=== PATIENT | female | born 1935 | race Caucasian/White ===

== ENCOUNTER → 2018-03-04 11:49 | Outpatient (CLI) | payer MEDICARE, SELFPAY ==
--- NOTE | 2018-03-04 | DI.MG.S_ITS ---
BILATERAL DIGITAL SCREENING MAMMOGRAM 3D/2D WITH CAD POST LUMPECTOMY: 03/04/2018 CLINICAL: Routine screening. Personal history of breast cancer. Comparison is made to exams dated: 02/01/2017 mammogram - [facility], 02/20/2016 mammogram - [facility], and 07/27/2016 mammogram - [facility]. The tissue of both breasts is heterogeneously dense. This may lower the sensitivity of mammography. Current study was also evaluated with a Computer Aided Detection (CAD) system. There are benign vascular and dystrophic calcifications in both breasts. There also are postoperative findings and scarring in the upper outer quadrants of both breasts, with overlying linear scar markers noted. Surgical clips are present in the upper outer right breast. No significant masses, calcifications, or other findings are seen in either breast. IMPRESSION: BENIGN There is no mammographic evidence of malignancy. A 1 year screening mammogram is recommended. This exam was interpreted at Station ID: [id number]. NOTE: For mammograms, a report in lay terms will be sent to the patient. Approximately 15% of breast malignancies will not be visualized mammographically. In the management of a palpable breast mass, a negative mammogram must not discourage biopsy of a clinically suspicious lesion. Electronically Signed By: Benjamin Maloney M.D. ecl/:03/06/2018 21:24:03 copy to: Junseng. Phan PALMA, [facility] letter sent: Normal Exam ACR BI-RADS Category 2: Benign Finding(s) 3342F
== END ==
PROVIDERS: Family Provider Internal Medicine; PCP Internal Medicine; Visit Provider Internal Medicine
DX: Z12.31 Encounter for screening mammogram for malignant neoplasm of breast (principal); Z85.3 Personal history of malignant neoplasm of breast
CPT/HCPCS: 77063; 77067

== ENCOUNTER → 2018-03-07 14:10 | Outpatient (CLI) | payer MEDICARE, SELFPAY ==
[2018-03-07 14:45] LABS: Alanine Aminotransferase 29 IU/L (9-52); Albumin 4.2 g/dL (3.5-5.0); Albumin Globulin Ratio 1.4 (1.0-2.8); Alkaline Phosphatase 72 U/L (38-126); Aspartate Aminotransferase 30 IU/L (14-36); BUN Creatinine Ratio 22.5 (6-22); Bilirubin Total 0.5 mg/dL (0.2-1.3); Blood Urea Nitrogen 18 mg/dL (7-17); Calcium 9.5 mg/dL (8.4-10.2); Carbon Dioxide 28 mmol/L (22-32); Chloride 105 mmol/L (98-107); Estimated Glomerular Filt Rate > 60.0 mL/min (>60); Globulin 2.9 g/dL (1.7-4.1); Glucose 108 mg/dL (80-110); HEMOLYSIS < 15 (0-50); Potassium 4.2 mmol/L (3.4-5.1); Sodium 144 mmol/L (137-145); Total Protein 7.1 g/dL (6.3-8.2)
[2018-03-07 14:49] LABS: Add Manual Diff / Slide Review NO; Basophils Percent Auto 1.2 % (0-2); Hematocrit 41.3 % (36-46); Hemoglobin 13.8 g/dL (12.0-16.0); Lymphocytes Percent Auto 28.7 % (25-40); Mean Corpuscular HGB Conc 33.5 % (30-36); Mean Corpuscular Volume 89.7 fL (80-100); Monocytes Percent Auto 7.6 % (3-14); Neutrophils Absolute Auto 2700 /uL (3000-5900); Neutrophils Percent Auto 58.5 % (50-75); Platelet Count 158 X10^3/uL (150-400); Red Blood Cell Count 4.61 X10^6/uL (4.0-5.2); Red Cell Distribution Width 14.2 % (11.6-14.8); White Blood Cell Count 4.6 X10^3/uL (4.5-11.0)
== END ==
PROVIDERS: Family Provider Internal Medicine; PCP Internal Medicine; Visit Provider Internal Medicine Hematology & Oncology
DX: C50.911 Malignant neoplasm of unspecified site of right female breast (principal)
CPT/HCPCS: 36415; 80053; 85025

== ENCOUNTER 2018-03-11 11:02 | Oncology outpatient (ONC) | payer MEDICARE, SELFPAY ==
--- NOTE | 2018-03-11 11:20 | ONC.PN ---
PN -Subjective Interval history: INTERIM EVENTS She has been doing well without any new complaints patient underwent mammogram couple days ago on March 04, 2018. And the mammogram showed no evidence of abnormalities and 1 year follow-up was recommended. ONCOLOGICAL HISTORY 1) right-sided invasive breast cancer. Stage I, (pT1, Nmic, M0). Diagnosis/surgery: 01/17/2015. Core needle biopsy at the 10 o'clock position 5 cm from the nipple. Pathology confirming an invasive ductal carcinoma, [place] histological grade 1-2. ER and PA were positive with an Abel score of 8 of 8 and 5 out of 8 respectively. Ki-67 equal to 5-10%. HER-2 was 2+ on IHC but negative on FISH with a ratio of 1.07 and a copy number 1.98. 04/18/2015. Right partial mastectomy with sentinel node procedure at [facility]. Her primary measuring 19 mm in greatest diameter. [place] histological grade was 2. Ki-67 equal to 10%. 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 Margins were otherwise clear with no tumor on ink on the invasive compounded. Two sentinel lymph nodes were identified 1 showing micrometastasis measuring 1 mm no extracapsular extension was seen. Prognosis: 03/11/2017. [email or web address] online tool: 5 and 10 year survival at 82% and 57% respectively. Absolute benefit of adjuvant hormone therapy at 1% and 3% respectively. Adjuvant treatment: Patient completed radiation therapy at [facility]. August 2014-September 2015. Anastrozole September 2015-October 2016. Tamoxifen. Patient discontinued thereafter was not interested in any further adjuvant therapies. Surveillance: 02/01/2017. Bilateral diagnostic mammogram. Breast tissue is heterogeneously dense. Stable architectural distortion with spiculated margin and linear punctate calcification right breast 11:00 middle depth. Surgical clips associated with architectural distortion. No other significant masses calcifications seen in either breast. - Additional ROS All systems PM: reviewed and no additional remarkable complaints except as stated Home Medications and Allergies Home Medications Medication Instructions Recorded Confirmed Type MULTIVITAMIN (#MULTIPLE VITAMINS) 1 cap PO Q DAY #0 10/12/11 History acetaminophen 325 mg PO PRN #0 05/19/16 History calcium citrate-vitamin D3 1 PO Q DAY #0 05/19/16 History [Citracal Regular] glucosamine sulfate-msm 1 PO Q DAY #0 05/19/16 History vitamin B complex [B 1 tab PO QDAY #0 05/19/16 History Complex-Vitamin B12] metronidazole 1 fran TOPICAL #0 12/07/16 History levothyroxine 100 mcg PO QAM #90 tab 04/07/17 Rx albuterol sulfate [Proventil HFA] 1 - 2 puff INH SEE INSTRUCTIONS 06/23/17 Rx #8.5 gm beclomethasone dipropionate [Qvar] 1 puff INH Q OTHER DAY 03/11/18 History mupirocin 1 applic TOPICAL BID 03/11/18 03/11/18 History peg 400-propylene glycol [Systane 03/11/18 History (propylene glycol)] potassium 198 mg PO DAILY 03/11/18 03/11/18 History Allergies Allergy/AdvReac Type Severity Reaction Status Date / Time oxycodone [OXYCODONE] Allergy Mild UNKNOWN Unverified 10/06/17 11:54 Sulfa (Sulfonamide Allergy Mild NAUSEA Unverified 10/06/17 11:54 Antibiotics) [SULFA (SULFONAMIDE ANTIBIOTICS)] sulfamethizole Allergy Mild UNKNOWN Unverified 10/06/17 11:54 [SULFAMETHIZOLE] trimethoprim [TRIMETHOPRIM] Allergy Mild UNKNOWN Unverified 10/06/17 11:54 Exam Vital signs: Temperature 96.7?, heart rate 71, respiratory rate 18, blood pressure 134/82, saturation 97% room air, weight 171.9 lb. - Constitutional positive no acute distress, positive thin, positive cooperative - Routine HEENT Exam Head: Present: normocephalic, atraumatic Eye: Present: EOMI, PERRL, normal accommodation. Absent: conjunctival icterus - Routine Neck Exam Present: supple, normal carotid upstroke. Absent: lymphadenopathy, thyromegaly - Routine Respiratory Exam Present: Clear to auscultation bilaterally. Absent: wheezes - Routine Cardiovascular Exam Present: RRR, S1, S2. Absent: murmur, gallop, rubs - Routine Abdominal Exam Present: soft, normoactive bowel sounds Palpation/Percussion: Absent: hepatomegaly, splenomegaly - Routine Extremities Exam Absent: edema - Routine Neurological Exam Present: alert, oriented X3, CN II-XII intact, normal speech. Absent: sensory deficit, motor deficit - Routine Psychiatric Exam Present: normal affect, normal thought process, cooperative, good insight, good judgment Results - Labs Reviewed Assessment and Plan (1) Cancer of right breast, stage 1, estrogen receptor positive Current visit: Yes Status: Chronic Clinically and mammographically, I do not think there is any evidence to suggest disease recurrence or metastasis. Of note, patient has only been able to tolerate 2 years and 2 months of adjuvant hormone therapy and had to discontinue in October of 2016 due to intolerable fatigue and left upper quadrant pain. I talked with the patient that I am going to see her in about 6 months. I emphasized that if she notice any new changes, new problems or anything, she needs to call us.
[2018-03-11 11:22] VITALS: BP 134/82; PULSE 71; RESP 18; TEMP 35.9; O2SAT 97
== END 2018-03-12 12:00 ==
LOC: ONC 11:03
PROVIDERS: Family Provider Internal Medicine; PCP Internal Medicine; Visit Provider Internal Medicine Hematology & Oncology
DX: Z08 Encounter for follow-up examination after completed treatment for malignant neoplasm (principal); Z85.3 Personal history of malignant neoplasm of breast
CPT/HCPCS: 99213

== ENCOUNTER → 2018-04-21 11:05 | Outpatient (CLI) | payer MEDICARE, SELFPAY ==
[2018-04-21 11:40] LABS: Add Manual Diff / Slide Review NO; Eosinophils Percent Auto 3.7 % (2-4); Hematocrit 42.1 % (36-46); Lymphocytes Percent Auto 29.4 % (25-40); Mean Corpuscular HGB Conc 33.3 % (30-36); Mean Corpuscular Hemoglobin 30.2 PG (26-34); Mean Corpuscular Volume 90.5 fL (80-100); Monocytes Percent Auto 7.4 % (3-14); Neutrophils Absolute Auto 2300 /uL (3000-5900); Neutrophils Percent Auto 58.5 % (50-75); Platelet Count 168 X10^3/uL (150-400); Red Blood Cell Count 4.65 X10^6/uL (4.0-5.2); Red Cell Distribution Width 14.3 % (11.6-14.8)
[2018-04-21 11:46] LABS: Alanine Aminotransferase 29 IU/L (9-52); Albumin 4.3 g/dL (3.5-5.0); Albumin Globulin Ratio 1.5 (1.0-2.8); Alkaline Phosphatase 67 U/L (38-126); Aspartate Aminotransferase 30 IU/L (14-36); BUN Creatinine Ratio 22.5 (6-22); Bilirubin Total 0.4 mg/dL (0.2-1.3); Blood Urea Nitrogen 18 mg/dL (7-17); Calcium 9.5 mg/dL (8.4-10.2); Carbon Dioxide 29 mmol/L (22-32); Chloride 105 mmol/L (98-107); Estimated Glomerular Filt Rate > 60.0 mL/min (>60); Globulin 2.8 g/dL (1.7-4.1); Glucose 95 mg/dL (80-110); HEMOLYSIS < 15 (0-50); Potassium 3.9 mmol/L (3.4-5.1); Sodium 142 mmol/L (137-145); Total Protein 7.1 g/dL (6.3-8.2)
[2018-04-21 13:12] LABS: Free T4, Direct Thyroxine 1.27 ng/dL (0.78-2.19)
[2018-04-21 13:26] LABS: Thyroid Stimulating Hormone 2.46 uIU/mL (0.47-4.68)
== END ==
PROVIDERS: Family Provider Internal Medicine; PCP Internal Medicine; Visit Provider Internal Medicine
DX: E03.9 Hypothyroidism, unspecified (principal); E11.9 Type 2 diabetes mellitus without complications; J45.40 Moderate persistent asthma, uncomplicated; C50.911 Malignant neoplasm of unspecified site of right female breast; Z17.0 Estrogen receptor positive status [ER+]
CPT/HCPCS: 36415; 80053; 83036; 84439; 84443; 85025

== ENCOUNTER 2019-01-05 07:41 | Day surgery (SDC) | payer MEDICARE, SELFPAY ==
--- NOTE | 2019-01-05 | PATH_ITS ---
[facility] Accession Number: [id number] . 01 Material submitted: . PART A: body - POLYP AT 30 PART B: hemorrhoids - TISSUE FROM HEMORRHOID . 02 Diagnosis: A. Biopsy, Colon Polyp at 30 cm: Tubular adenoma involving multiple biopsy fragments. . B. Specimen Designated Tissue From Hemorrhoid: Fragments of rectal mucosa with nonspecific hyperplastic changes, negative for signicant atypia. No squamous epithelium identified. MRV/01/09/2019 . 02 Electronically signed: . Gume Estrada MD, Pathologist NPI- [id number] . 01 Gross description: . Part A: POLYP AT 30: Received in formalin are multiple fragment(s) of [place], soft tissue measuring 1.4 x 0.7 x 0.2 cm in aggregate submitted entirely in 1 cassette(s) Part B: TISSUE FROM HEMORRHOID: Received in formalin are multiple fragment(s) of [place], soft tissue measuring 0.6 x 0.4 x 0.2 cm in aggregate submitted entirely in 1 cassette(s) /CKI /CKI . 02 Pathologist provided ICD-10: D12.5 . 02 CPT . 366370, [id number] Performed at: 01 [facility] [address], [place], [place] [id number] MD Km Agarwal MD Phone: [phone] Performed at: 02 [facility] [address] [place], [place] [id number] MD Gwen Powell MD Phone: [phone]
[2019-01-05 08:13] VITALS: BP 151/74; PULSE 71; RESP 15; TEMP 36.4; O2SAT 95; BMI 26.5
[2019-01-05] MEDS: LACTATED RINGERS 1,000 ML 200 ML IV (08:31)
--- NOTE | 2019-01-05 09:13 | PM.PREOP ---
Pre-operative Note Interval Note History & Physical reviewed/Exam performed by Physician: Yes Changes to H&P: No H&P completed within 30 days and has changed as indicated here:: See H and P from 12/14/2018. Glucose 89
[2019-01-05 10:27] VITALS: BP 114/50; PULSE 50; RESP 12; TEMP 36.2; O2SAT 97
[2019-01-05 10:30] VITALS: BP 117/55; PULSE 47; RESP 12; TEMP 36.3; O2SAT 97
[2019-01-05 10:35] VITALS: BP 135/50; PULSE 57; RESP 18; TEMP 36.4; O2SAT 96
[2019-01-05 10:41] VITALS: BP 126/61; PULSE 55; RESP 16; TEMP 36.3; O2SAT 94
[2019-01-05 10:58] VITALS: BP 158/64; PULSE 58; RESP 18; TEMP 36.7; O2SAT 98
--- NOTE | 2019-01-05 11:15 | PM.OP.ENDO ---
Operative Date/Time/Diagnoses Date of procedure: 01/05/19 Time of procedure: 10:15 Pre-op diagnosis: Rectal bleeding Post-op diagnosis: same (Ulcerative process at the anus including a hemorrhoid. Small polyp at 30 cm. Sigmoid diverticulosis.) Procedure & Clinicians Study performed: Colonoscopy with hot snare polypectomy and 2 column hemorrhoid banding Same procedure as scheduled: Yes Indications: Rectal bleeding Surgeon: Ramez Varma Procedure Notes SCOAP/Timeout: Performed Procedure in detail: Because of the patient's anxiety in severe discomfort with her last colonoscopy I asked that anesthesia be involved for deep sedation. Patient did not feel she could tolerate simple moderate sedation as she has had before. The patient was placed in the left lateral decubitus position . Digital exam was remarkable for visible swollen external hemorrhoid. The scope was inserted and advanced through the rectum into the sigmoid, descending, transverse, and ascending colon. A polyp was removed on the way in at 30 cm with a hot snare. It was under a cm in size.. The cecum was reached identified by the ileocecal valve. The scope was gradually brought out. No other Polyps were found. The scope ultimately was retroflexed in the rectum. The appearance was remarkable for an ulcerated hemorrhoid and 1 additional hemorrhoid of fair size. I chose to biopsy the surface of the ulcerative hemorrhoid just in case there is neoplastic process on its surface. The scope was removed and the patient tolerated the procedure well. An anoscope was inserted and 2 columns of hemorrhoids including the ulcer day of 1 had rubber bands placed on them. The results appeared to be adequate. The scope anoscope was removed. Scope withdrawal time: 10 minutes Findings: diverticulosis (Sigmoid) and polyp (At 30 cm) Specimen(s): other (Polyp and rectal biopsy) Complications: none Recommendations: Will call with biopsy results Plan for aftercare: Follow-up in the office in about 10-14 days Disposition: PACU
--- NOTE | 2019-01-05 11:32 | SUR.PHASEII ---
Dr Varma discharged pt. pt dressed with assist of . Pt left when ready and left in stable condition.
--- NOTE | 2019-01-05 11:40 | SUR.PHASEII ---
Late entry: Pt with bruise to L under side of forearm from ekg removal. Skin intact, pt admitted to having thin fragile skin that bruised easily. both forearms scattered with tiny bruises in various stages of healing
== END 2019-01-05 11:32 | disposition home or self-care (01) ==
PROVIDERS: PCP Internal Medicine; Visit Provider Specialist
PROC: 0DJD8ZZ Inspection of Lower Intestinal Tract, Via Natural or Artificial Opening Endoscopic (ICD-10-PCS; CPT 45378; principal; 2019-01-05 08:45)
DX: D12.5 Benign neoplasm of sigmoid colon (principal); K57.30 Diverticulosis of large intestine without perforation or abscess without bleeding; K64.4 Residual hemorrhoidal skin tags; E11.9 Type 2 diabetes mellitus without complications; E03.9 Hypothyroidism, unspecified
CPT/HCPCS: 45385; 46221; 88305; J2704; J3010

== ENCOUNTER → 2019-03-06 12:51 | Outpatient (CLI) | payer MEDICARE, SELFPAY ==
--- NOTE | 2019-03-06 12:54 | DI.MG.S_ITS ---
BILATERAL DIGITAL SCREENING MAMMOGRAM 3D/2D WITH CAD POST LUMPECTOMY: 03/06/2019 CLINICAL: Routine screening. Personal history of breast cancer. Family history of breast cancer. Comparison is made to exams dated: 03/04/2018 mammogram, 02/01/2017 mammogram, 07/27/2016 mammogram - [facility], 02/20/2016 mammogram - [facility], and 01/08/2015 mammogram - [facility]. The tissue of both breasts is heterogeneously dense. This may lower the sensitivity of mammography. Current study was also evaluated with a Computer Aided Detection (CAD) system. There are benign vascular calcifications in both breasts. There also are benign post operative findings in both breasts. No significant masses, calcifications, or other findings are seen in either breast. There has been no significant interval change. IMPRESSION: There is no mammographic evidence of malignancy. A 1 year screening mammogram is recommended. This exam was interpreted at Station ID: [id number]. NOTE: For mammograms, a report in lay terms will be sent to the patient. Approximately 15% of breast malignancies will not be visualized mammographically. In the management of a palpable breast mass, a negative mammogram must not discourage biopsy of a clinically suspicious lesion. Electronically Signed By: Martin keith/hugo:03/06/2019 16:58:32 copy to: Praveen Howard letter sent: Normal Exam ACR BI-RADS Category 2: Benign Finding(s) 3342F
[2019-03-06 13:43] LABS: Add Manual Diff / Slide Review NO; Basophils Absolute Auto 100 /uL (0-100); Basophils Percent Auto 1.2 % (0-2); Eosinophils Absolute Auto 100 /uL (0-450); Eosinophils Percent Auto 1.6 % (2-4); Hematocrit 41.7 % (36-46); Hemoglobin 13.8 g/dL (12.0-16.0); Lymphocytes Absolute Auto 1100 /uL (1100-4500); Lymphocytes Percent Auto 24.9 % (25-40); Mean Corpuscular HGB Conc 33.1 % (30-36); Mean Corpuscular Hemoglobin 30.1 PG (26-34); Monocytes Absolute Auto 300 /uL (0-900); Monocytes Percent Auto 5.6 % (3-14); Neutrophils Absolute Auto 3000 /uL (1500-7000); Neutrophils Percent Auto 66.7 % (50-75); Platelet Count 167 X10^3/uL (150-400); Red Blood Cell Count 4.58 X10^6/uL (4.0-5.2); Red Cell Distribution Width 14.3 % (11.6-14.8); White Blood Cell Count 4.6 X10^3/uL (4.5-11.0)
[2019-03-06 14:11] LABS: Alanine Aminotransferase 27 IU/L (9-52); Albumin 4.2 g/dL (3.5-5.0); Albumin Globulin Ratio 1.5 (1.0-2.8); Alkaline Phosphatase 68 U/L (38-126); Aspartate Aminotransferase 34 IU/L (14-36); Bilirubin Total 0.6 mg/dL (0.2-1.3); Blood Urea Nitrogen 16 mg/dL (7-17); Calcium 9.5 mg/dL (8.4-10.2); Carbon Dioxide 30 mmol/L (22-32); Chloride 103 mmol/L (98-107); Estimated Glomerular Filt Rate > 60.0 mL/min (>60); Globulin 2.8 g/dL (1.7-4.1); Glucose 91 mg/dL (80-110); HEMOLYSIS < 15 (0-50); Potassium 3.8 mmol/L (3.4-5.1); Sodium 141 mmol/L (137-145)
== END ==
PROVIDERS: Family Provider Internal Medicine; PCP Internal Medicine; Visit Provider Internal Medicine Hematology & Oncology
DX: Z12.31 Encounter for screening mammogram for malignant neoplasm of breast (principal); Z85.3 Personal history of malignant neoplasm of breast; Z80.3 Family history of malignant neoplasm of breast; M85.831 Other specified disorders of bone density and structure, right forearm; Z78.0 Asymptomatic menopausal state; E07.9 Disorder of thyroid, unspecified
CPT/HCPCS: 36415; 77063; 77067; 77080; 80053; 85025

== ENCOUNTER → 2019-06-08 14:20 | Outpatient (CLI) | payer MEDICARE, SELFPAY ==
[2019-06-08 15:38] LABS: Alanine Aminotransferase 21 IU/L (<35); Albumin 4.1 g/dL (3.5-5.0); Albumin Globulin Ratio 1.6 (1.0-2.8); Alkaline Phosphatase 74 U/L (38-126); Aspartate Aminotransferase 33 IU/L (14-36); BUN Creatinine Ratio 22.5 (6-22); Bilirubin Total 0.4 mg/dL (0.2-1.3); Blood Urea Nitrogen 18 mg/dL (7-17); Calcium 9.7 mg/dL (8.4-10.2); Carbon Dioxide 31 mmol/L (22-32); Chloride 104 mmol/L (98-107); Estimated Glomerular Filt Rate > 60.0 mL/min (>60); Globulin 2.5 g/dL (1.7-4.1); Glucose 78 mg/dL (80-110); HEMOLYSIS 15 (0-50); Potassium 4.3 mmol/L (3.4-5.1); Sodium 142 mmol/L (137-145); Total Protein 6.6 g/dL (6.3-8.2)
[2019-06-08 15:54] LABS: Free T4, Direct Thyroxine 1.21 ng/dL (0.78-2.19)
[2019-06-08 16:06] LABS: Hemoglobin A1C% w Est Avg Glu 5.5 % (4.0-6.0)
== END ==
PROVIDERS: PCP Internal Medicine; Visit Provider Internal Medicine
DX: C50.911 Malignant neoplasm of unspecified site of right female breast (principal); E03.9 Hypothyroidism, unspecified; E11.9 Type 2 diabetes mellitus without complications; Z17.0 Estrogen receptor positive status [ER+]
CPT/HCPCS: 36415; 80053; 83036; 84439; 84443

== ENCOUNTER → 2019-12-08 07:54 | Outpatient (CLI) | payer MEDICARE, SELFPAY ==
[2019-12-08 08:23] LABS: Hemoglobin A1C% w Est Avg Glu 5.9 % (4.0-6.0)
[2019-12-08 08:32] LABS: Alanine Aminotransferase 20 IU/L (<35); Albumin 4.3 g/dL (3.5-5.0); Albumin Globulin Ratio 1.4 (1.0-2.8); Alkaline Phosphatase 72 U/L (38-126); Aspartate Aminotransferase 32 IU/L (14-36); BUN Creatinine Ratio 21.7 (6-22); Bilirubin Total 0.6 mg/dL (0.2-1.3); Blood Urea Nitrogen 18 mg/dL (7-17); Calcium 9.9 mg/dL (8.4-10.2); Carbon Dioxide 29 mmol/L (22-32); Chloride 104 mmol/L (98-107); Cholesterol 212 mg/dL (140-199); Estimated Glomerular Filt Rate > 60.0 mL/min (>60); Glucose 100 mg/dL (80-110); HDL Cholesterol 62 mg/dL (40-60); HEMOLYSIS < 15 (0-50); LDL Cholesterol Calculated 132 mg/dL (<100); Potassium 4.1 mmol/L (3.4-5.1); Sodium 139 mmol/L (137-145); Total Protein 7.3 g/dL (6.3-8.2); Triglycerides 91 mg/dL (35-150)
[2019-12-08 09:22] LABS: Free T4, Direct Thyroxine 1.17 ng/dL (0.78-2.19)
== END ==
PROVIDERS: PCP Internal Medicine; Referring Provider Internal Medicine; Visit Provider Internal Medicine
DX: E11.9 Type 2 diabetes mellitus without complications (principal); C50.911 Malignant neoplasm of unspecified site of right female breast; E03.9 Hypothyroidism, unspecified; E04.1 Nontoxic single thyroid nodule; Z17.0 Estrogen receptor positive status [ER+]
CPT/HCPCS: 36415; 80053; 80061; 83036; 84439; 84443

== ENCOUNTER → 2020-03-07 09:22 | Outpatient (CLI) | payer MEDICARE, SELFPAY ==
--- NOTE | 2020-03-07 09:34 | DI.MG.S_ITS ---
Patient Name: KYLIE STONE date: 1935 Sex: F Attending Physician: Phan Indications: Date: 03/07/2020 09:30 At the request of: BRIEN NICOLE Procedure: MM screening mammo BI BILATERAL DIGITAL SCREENING MAMMOGRAM 3D/2D WITH CAD: 03/07/2020 CLINICAL: Routine screening. Personal history of bilateral breast cancer. Comparison is made to exams dated: 03/06/2019 mammogram, 03/04/2018 mammogram, and 02/01/2017 mammogram - [facility]. The tissue of both breasts is heterogeneously dense. This may lower the sensitivity of mammography. Current study was also evaluated with a Computer Aided Detection (CAD) system. There are benign calcifications in both breasts. There also are benign vascular calcifications in both breasts. Additionally, there are benign post operative findings in both breasts. No significant masses, calcifications, or other findings are seen in either breast. There has been no significant interval change. IMPRESSION: BENIGN There is no mammographic evidence of malignancy. A 1 year screening mammogram is recommended. This exam was interpreted at Station ID: [id number]. NOTE: For mammograms, a report in lay terms will be sent to the patient. Approximately 15% of breast malignancies will not be visualized mammographically. In the management of a palpable breast mass, a negative mammogram must not discourage biopsy of a clinically suspicious lesion. Electronically Signed By: Nieves viera/hugo:03/07/2020 11:02:14 copy to: Praveen Howard letter sent: Normal Exam ACR BI-RADS Category 2: Benign Finding(s) 3342F Continued Report - Page 2 of 2 Patient Name: KYLIE STONE date: 1935 Sex: F Attending Physician: Phan Indications: Date: 03/07/2020 09:30 At the request of: BRIEN NICOLE Procedure: MM screening mammo BI
== END ==
PROVIDERS: PCP Internal Medicine; Referring Provider Internal Medicine Hematology & Oncology; Visit Provider Internal Medicine Hematology & Oncology
DX: Z12.31 Encounter for screening mammogram for malignant neoplasm of breast (principal); Z85.3 Personal history of malignant neoplasm of breast
CPT/HCPCS: 77063; 77067

== ENCOUNTER → 2021-08-05 10:49 | Outpatient (CLI) | payer MEDICARE, SELFPAY ==
--- NOTE | 2021-08-05 10:50 | DI.RAD.S_ITS ---
PROCEDURE: XR CHEST 2V INDICATIONS: left chest pain TECHNIQUE: 2 views of the chest were acquired. COMPARISON: [facility], , CHEST 2 VIEW, 01/03/2015, 10:47. FINDINGS: Surgical changes and devices: Surgical clips are seen in left axilla.. Lungs and pleura: Chronic emphysematous changes are seen. No focal infiltrate. No pleural effusions or pneumothorax. Mediastinum: Mediastinal contours are normal. Heart size is enlarged. Bones and chest wall: No suspicious bony abnormalities. Soft tissues appear unremarkable. IMPRESSION: COPD. No acute cardiopulmonary pathology. Dictated by: Buddy Aquino M.D. on 08/05/2021 at 13:20 Approved by: Buddy Aquino M.D. on 08/05/2021 at 13:20
== END ==
PROVIDERS: PCP Internal Medicine; Referring Provider Internal Medicine; Visit Provider Internal Medicine
DX: C50.911 Malignant neoplasm of unspecified site of right female breast (principal); E03.9 Hypothyroidism, unspecified; E11.9 Type 2 diabetes mellitus without complications; J45.40 Moderate persistent asthma, uncomplicated; R07.9 Chest pain, unspecified; Z17.0 Estrogen receptor positive status [ER+]
CPT/HCPCS: 71046

== ENCOUNTER → 2021-08-06 11:20 | Outpatient (CLI) | payer MEDICARE, SELFPAY ==
[2021-08-06 12:18] LABS: Add Manual Diff / Slide Review NO; Basophils Absolute Auto 0 /uL (0-100); Basophils Percent Auto 0.7 % (0-2); Eosinophils Absolute Auto 100 /uL (0-450); Eosinophils Percent Auto 1.6 % (2-4); Hematocrit 40.4 % (36-46); Hemoglobin 13.3 g/dL (12.0-16.0); Lymphocytes Absolute Auto 1000 /uL (1100-4500); Lymphocytes Percent Auto 24.6 % (25-40); Mean Corpuscular HGB Conc 32.9 % (30-36); Mean Corpuscular Hemoglobin 29.3 PG (26-34); Mean Corpuscular Volume 88.9 fL (80-100); Monocytes Absolute Auto 300 /uL (0-900); Monocytes Percent Auto 7.7 % (3-14); Neutrophils Absolute Auto 2600 /uL (1500-7000); Neutrophils Percent Auto 65.4 % (50-75); Platelet Count 161 X10^3/uL (150-400); Red Blood Cell Count 4.54 X10^6/uL (4.0-5.2); Red Cell Distribution Width 14.3 % (11.6-14.8); White Blood Cell Count 3.9 X10^3/uL (4.5-11.0)
[2021-08-06 12:26] LABS: Alanine Aminotransferase 17 IU/L (<35); Albumin Globulin Ratio 1.6 (1.0-2.8); Alkaline Phosphatase 73 U/L (38-126); Aspartate Aminotransferase 27 IU/L (14-36); BUN Creatinine Ratio 21.1 (6-22); Bilirubin Total 0.6 mg/dL (0.2-1.3); Blood Urea Nitrogen 16 mg/dL (7-17); Calcium 9.5 mg/dL (8.4-10.2); Carbon Dioxide 33 mmol/L (22-32); Chloride 103 mmol/L (98-107); Estimated Glomerular Filt Rate > 60.0 mL/min (>60); Globulin 2.5 g/dL (1.7-4.1); Glucose 91 mg/dL (80-110); HEMOLYSIS < 15 (0-50); Sodium 140 mmol/L (137-145); Total Protein 6.5 g/dL (6.3-8.2)
[2021-08-06 13:09] LABS: Hemoglobin A1C% w Est Avg Glu 5.6 % (4.0-6.0)
[2021-08-06 13:19] LABS: Free T4, Direct Thyroxine 1.73 ng/dL (0.78-2.19)
== END ==
PROVIDERS: PCP Internal Medicine; Referring Provider Internal Medicine; Visit Provider Internal Medicine
DX: E11.9 Type 2 diabetes mellitus without complications (principal); C50.911 Malignant neoplasm of unspecified site of right female breast; E03.9 Hypothyroidism, unspecified; J45.40 Moderate persistent asthma, uncomplicated; R07.9 Chest pain, unspecified; Z17.0 Estrogen receptor positive status [ER+]
CPT/HCPCS: 36415; 80053; 83036; 84439; 84443; 85025

== ENCOUNTER → 2021-08-22 10:04 | Outpatient (CLI) | payer MEDICARE, SELFPAY ==
--- NOTE | 2021-08-22 10:17 | DI.CT.S_ITS ---
PROCEDURE: CT CHEST W CON INDICATIONS: Chest pain TECHNIQUE: After the administration of intravenous contrast, 5 mm thick sections acquired from the pulmonary apices to the posterior costophrenic angles. 1 mm axial lung, 5 mm thick coronal and sagittal reformats and 7 mm axial MIP were acquired. For radiation dose reduction, the following was used: automated exposure control, adjustment of mA and/or kV according to patient size. COMPARISON: [facility], CT, THORAX WITH CONTRAST, 02/27/2015, 9:04. [facility], CT, THORAX WITHOUT CONTRAST, 05/30/2008, 9:18. [facility], CT, THORAX WITH CONTRAST, 02/15/2008, 8:42. CT, THORAX WITHOUT CONTRAST, 07/23/2016, 12:32. FINDINGS: Image quality: Excellent. Lungs and pleura: There is a 1.6 cm partially calcified nodule in the right upper lobe, slightly enlarged since 07/23/2016 (previously 1.3 cm). A 0.3 x 0.7 cm nodule is seen along the minor fissure, unchanged in size. No acute air space opacities. No pleural effusions or pneumothorax. Central and peripheral airways are patent and normal in caliber. Mediastinum: Heart size is normal. No pericardial effusion. No mediastinal or hilar adenopathy by size criteria. Thoracic aorta and central pulmonary arteries are normal in size. Esophagus is normal in caliber. No hiatal hernia. Bones and chest wall: Surgical clips in the left breast and the left axilla. No suspicious bony lesions. No vertebral body compression fractures. No axillary or supraclavicular adenopathy by size criteria. Thyroid gland is normal. Abdomen: There is a 0.7 cm low-density nodule in spleen, not seen on previous exams. There are gallstones or gallbladder sludge. Visualized upper abdominal solid organs appear normal. Upper abdominal bowel loops are normal in caliber. IMPRESSION: 1. Slight enlargement right upper lobe partially calcified nodule measuring 1.6 mm (previously 1.3 cm on 07/23/2016). 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 2. Stable noncalcified nodule in the right minor fissure. 3. A 0.7 cm indeterminate low-density nodule in the spleen, not seen on the prior exams. It is probably a cyst or hemangioma. Ultrasound is suggested for follow-up. 4. Gallstones versus sludge in gallbladder. Dictated by: Luz Adrian M.D. on 08/22/2021 at 12:10 Approved by: Luz Adrian M.D. on 08/22/2021 at 13:56
== END ==
PROVIDERS: PCP Internal Medicine; Referring Provider Internal Medicine; Visit Provider Internal Medicine
DX: C50.911 Malignant neoplasm of unspecified site of right female breast (principal); R07.9 Chest pain, unspecified; G89.29 Other chronic pain; R91.8 Other nonspecific abnormal finding of lung field; D73.9 Disease of spleen, unspecified; Z17.0 Estrogen receptor positive status [ER+]
CPT/HCPCS: 71260

== ENCOUNTER → 2021-08-25 10:06 | Outpatient (CLI) | payer MEDICARE, SELFPAY ==
[2021-08-26 11:20] LABS: Varicella IgG Antibody 2653 index (Immune >165)
== END ==
PROVIDERS: PCP Internal Medicine; Referring Provider Internal Medicine; Visit Provider Internal Medicine
DX: Z01.84 Encounter for antibody response examination (principal)
CPT/HCPCS: 36415; 86787

== ENCOUNTER → 2023-02-02 08:43 | Outpatient (CLI) | payer MEDICARE, SELFPAY ==
[2023-02-02 10:16] LABS: Alanine Aminotransferase 19 IU/L (<35); Albumin 3.7 g/dL (3.5-5.0); Albumin Globulin Ratio 1.4 (1.0-2.8); Alkaline Phosphatase 74 U/L (38-126); Aspartate Aminotransferase 26 IU/L (14-36); BUN Creatinine Ratio 30.6 (6-22); Bilirubin Total 0.5 mg/dL (0.2-1.3); Blood Urea Nitrogen 22 mg/dL (7-17); Calcium 8.8 mg/dL (8.4-10.2); Carbon Dioxide 32 mmol/L (22-32); Chloride 104 mmol/L (98-107); Cholesterol 201 mg/dL (140-199); Estimated Glomerular Filt Rate > 60 mL/min (>60); Globulin 2.6 g/dL (1.7-4.1); Glucose 90 mg/dL (80-110); HDL Cholesterol 69 mg/dL (40-60); HEMOLYSIS < 15 (0-50); LDL Cholesterol Calculated 114 mg/dL (<100); Sodium 138 mmol/L (137-145); Total Protein 6.3 g/dL (6.3-8.2); Triglycerides 91 mg/dL (35-150)
[2023-02-02 10:30] LABS: Free T4, Direct Thyroxine 1.46 ng/dL (0.78-2.19)
[2023-02-02 10:44] LABS: Thyroid Stimulating Hormone 0.283 uIU/mL (0.47-4.68)
[2023-02-02 12:11] LABS: Creatinine Urine Random 22.3 mg/dL
[2023-02-02 12:26] LABS: Microalbumin Urine Random < 0.6 mg/dL (0-1.6)
[2023-02-03 03:36] LABS: Labcorp Hemoglobin (Hb) A1c 5.8 % (4.8-5.6)
== END ==
PROVIDERS: PCP Internal Medicine; Referring Provider Internal Medicine; Visit Provider Internal Medicine
DX: E03.9 Hypothyroidism, unspecified; E04.1 Nontoxic single thyroid nodule; E11.9 Type 2 diabetes mellitus without complications; J45.40 Moderate persistent asthma, uncomplicated
CPT/HCPCS: 36415; 80053; 80061; 82043; 82570; 83036; 84439; 84443